=== PATIENT | male | born 1990 | race Caucasian/White ===

== ENCOUNTER 2019-02-04 07:29 | Emergency (ER) | payer SELFPAY | END 2019-02-04 07:32 | disposition left against medical advice (07) | LOC: ER 07:29 → EDBD 07:29 → ER 07:32 | DX: R06.02 Shortness of breath (principal); R07.81 Pleurodynia; Z53.21 Procedure and treatment not carried out due to patient leaving prior to being seen by health care provider ==

== ENCOUNTER 2021-09-21 06:29 | Emergency (ER) | payer SELFPAY ==
[~2021-09-21] VITALS: Ht 177.8 cm; Wt 113.3 kg
[2021-09-21 06:47] VITALS: BP 144/97
--- NOTE | 2021-09-21 07:11 | PHYS DOC ---
Past History Past Surgical History: No Surgical History Alcohol Use: Heavy General Adult EDM: Chief Complaint: SHOULDER INJURY HPI: HPI: 31-year-old male presents with multiple complaints. He eventually focused on left shoulder discomfort. Patient denies any specific injury. He states it hurt for years. 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 He states that his friend used [employer] to take them by staff out of his right hand. He is not making any sense. He only admits to alcohol use today. Denies drug use. He also talked about a friend being tasered and himself getting hog tied. Review of Systems: Review of Systems: Constitutional: Denies fever or chills Eyes: Denies change in visual acuity HENT: Denies nasal congestion or sore throat Respiratory: Denies cough or shortness of breath Cardiovascular: Denies chest pain or edema GI: Denies abdominal pain, nausea, vomiting, bloody stools or diarrhea : Denies dysuria Musculoskeletal: Left shoulder pain Integument: Denies rash Neurologic: Denies headache, focal weakness or sensory changes Endocrine: Denies polyuria or polydipsia Lymphatic: Denies swollen glands Psychiatric: Denies depression or anxiety Allergies: Allergies: Allergies Coded Allergies Type Severity Reaction Last Updated Verified No Known Allergies Allergy Unknown 09/21/21 Yes Physical Exam: PE: Constitutional: Well developed, well nourished, no acute distress, non-toxic appearance. [] HENT: Normocephalic, atraumatic, bilateral external ears normal, oropharynx moist, no oral exudates, nose normal. [] Eyes: PERRLA, EOMI, conjunctiva normal, no discharge. [] Neck: Normal range of motion, no tenderness, supple, no stridor. [] Cardiovascular:Heart rate regular rhythm, no murmur [] Lungs & Thorax: Bilateral breath sounds clear to auscultation [] Abdomen: Bowel sounds normal, soft, no tenderness, no masses, no pulsatile masses. [] Skin: Warm, dry, no erythema, no rash. [] Back: No tenderness, no CVA tenderness. [] Extremities: No tenderness, no cyanosis, no clubbing, ROM intact, no edema. [] Neurologic: Alert and oriented X 3, normal motor function, normal sensory function, no focal deficits noted. [] Psychologic: Affect pressured, flight of ideas, mood anxious. [] Current Patient Data: Vital Signs: Vital Signs Date Time Temp Pulse Resp B/P (MAP) Pulse Ox O2 Delivery O2 Flow Rate FiO2 09/21/21 06:47 99.1 130 20 144/97 (113) 96 Room Air EKG: EKG: [] Radiology/Procedures: Radiology/Procedures: [] Heart Score: C/O Chest Pain: N/A Risk Factors: Risk Factors: DM, Current or recent (<one month) smoker, HTN, HLP, family history of CAD, obesity. Risk Scores: Score 0 - 3: 2.5% MACE over next 6 weeks - Discharge Home Score 4 - 6: 20.3% MACE over next 6 weeks - Admit for Clinical Observation Score 7 - 10: 72.7% MACE over next 6 weeks - Early Invasive Strategies Course & Med Decision Making: Course & Med Decision Making Pertinent Labs and Imaging studies reviewed. (See chart for details) The patient has full range of motion of his shoulder. His story is all over the place and does not make medical sense. I suspect he is intoxicated on more than just alcohol, but I cannot rule out mental health disorder. Patient refused shoulder x-ray. He then left AMA. [] Dragon Disclaimer: Mara Disclaimer: This electronic medical record was generated, in whole or in part, using a voice recognition dictation system. Departure Departure: Impression: Primary Impression: Shoulder pain Additional Impression: Intoxication Disposition: LEFT AWOL/ELOPED Condition: STABLE Referrals: PCP,NO (PCP) AUSTEN BARBOUR DO Sep 21, 2021 07:11
== END 2021-09-21 07:14 | disposition left against medical advice (07) ==
LOC: ER 06:29
DX: M25.512 Pain in left shoulder (principal); F10.229 Alcohol dependence with intoxication, unspecified; Y90.9 Presence of alcohol in blood, level not specified
CPT/HCPCS: 99281

== ENCOUNTER 2021-09-22 23:45 | Emergency (ER) | payer SELFPAY ==
[~2021-09-22] VITALS: Ht 177.8 cm; Wt 113.3 kg
[2021-09-22 23:45] VITALS: BP 141/99
--- NOTE | 2021-09-23 00:04 | PHYS DOC ---
Past History Past Surgical History: No Surgical History Alcohol Use: Heavy Adult General HPI HPI Patient is a 31-year-old female presenting for multiple complaints. He was seen and evaluated at our facility 48 hours ago for ultimately left shoulder discomfort. There has been no injury, this is a chronic issue without any recent trauma, exposure or exacerbation. Reports he had staph infection in left hand that was cured with friends which keyona. Admitted to alcohol use when last seen, admits to it today as well in addition to trying new strain of hemp. No other reported medical issues or medications taken on a daily basis Review of Systems Review of Systems Fourteen body systems of review of systems have been reviewed. See HPI for pertinent positives and negative responses, other santamaria all other systems are negative, non-pertinent or non-contributory Allergies Allergies Allergies Coded Allergies Type Severity Reaction Last Updated Verified No Known Allergies Allergy Unknown 09/21/21 Yes Physical Exam Physical Exam Constitutional: Well developed, well nourished, no acute distress, non-toxic appearance. HENT: Normocephalic, atraumatic, bilateral external ears normal, oropharynx moist, no oral exudates, nose normal. Eyes: PERRLA, EOMI, conjunctiva normal, no discharge. Neck: Normal range of motion, no tenderness, supple, no stridor. Cardiovascular: Heart rate regular, sinus rhythm, no murmurs rubs or gallops Lungs & Thorax: Bilateral breath sounds clear to auscultation Abdomen: Bowel sounds normal, soft, no tenderness, no masses, no pulsatile masses. Nonsurgical abdomen, no peritoneal signs Skin: Warm, dry, no erythema, no rash. Back: No tenderness, no CVA tenderness. Extremities: No tenderness, no cyanosis, no clubbing, ROM intact, no edema. No palpable and/or visual abnormalities of left shoulder. Patient has no problem with internal rotation, positive empty can sign of left arm Neurologic: Alert and oriented X 3, grossly normal motor & sensory function, no focal deficits noted. Psychologic: Odd affect, mood normal, scattered thought pattern EKG EKG [] Radiology/Procedures Radiology/Procedures [] Heart Score C/O Chest Pain: No Risk Factors: Risk Factors: DM, Current or recent (<one month) smoker, HTN, HLP, family history of CAD, obesity. Risk Scores: Risk Factors: DM, Current or recent (<one month) smoker, HTN, HLP, family history of CAD, obesity. Course & Med Decision Making Course & Med Decision Making ABCs unremarkable HPI and comprehensive physical exam nonconcerning for any emergent or surgical issues Patient here for chronic issue, no indication for further diagnostic ER workup, intervention, or hospitalization at this time. Patient likely has chronic left rotator cuff pathology that will require outpatient physical therapy with potential need for MRI imaging Supportive care practices, stretches, and close PCP follow-up for continued outp atient work-up advised Mara Disclaimer Mara Disclaimer This electronic medical record was generated, in whole or in part, using a voice recognition dictation system. Departure Departure: Impression: Primary Impression: Left shoulder pain Disposition: HOME / SELF CARE / HOMELESS Condition: STABLE Referrals: PCPMADHURI (PCP) Additional Instructions: You were seen for left shoulder pain. As discussed, you need to establish care with a primary care physician for further outpatient work-up that will likely include physical therapy with potential need for an MRI to rule out any obvious rotator cuff injury. You should return to the ED if you develop worsening pain, fever, numbness, tingling, weakness, or any other new or concerning symptoms. HELADIO MERAZ DO Sep 23, 2021 00:04
== END 2021-09-23 00:27 | disposition home or self-care (01) ==
LOC: ER 23:45
DX: M25.512 Pain in left shoulder (principal)
CPT/HCPCS: 99281